=== PATIENT | male | born 1995 | race African-American/Black ===

== ENCOUNTER 2017-10-28 16:48 | Inpatient (IN) | payer MEDICAID ==
[~2017-10-28] VITALS: Ht 170.2 cm; Wt 68.0 kg
[2017-10-28] MEDS ORDERED: ONDANSETRON HCL/PF 4 MG/2 ML VIAL ONE (17:26)
[2017-10-28] MEDS ORDERED: DEXAMETHASONE SOD PHOSPHATE 4 MG/ML VIAL ONE (17:26)
[2017-10-28 17:30] LABS: BASOPHILS # (AUTO) 0.1 /CMM (0.0-0.2); BASOPHILS % (AUTO) 0.8 % (0.0-2.0); EOSINOPHILS # (AUTO) 0.3 /CMM (0.0-0.7); HEMATOCRIT 47 % (39-51); HEMOGLOBIN 16.2 g/dL (13.5-17.5); LYMPHOCYTES # (AUTO) 0.7 /CMM (0.8-4.8); LYMPHOCYTES % (AUTO) 7.6 % (20.0-44.0); MEAN CORPUSCULAR HEMOGLOBIN 28 PG (26.0-33.0); MEAN CORPUSCULAR HGB CONC 35 g/dl (31.0-36.0); MEAN CORPUSCULAR VOLUME 81 fL (80-96); MONOCYTES # (AUTO) 0.5 /CMM (0.1-1.30); MONOCYTES % (AUTO) 4.7 % (2.0-12.0); NEUTROPHILS # (AUTO) 8.1 /CMM (1.8-8.9); NEUTROPHILS % (AUTO) 83.9 % (43.0-81.0); PLATELET COUNT (AUTO) 297 /CMM (150-450); RDW COEFFICIENT OF VARIATION 12.4 (11.5-15.0); RED BLOOD CELL COUNT(AUTO) 5.77 MIL/uL (4.5-6.0); WHITE BLOOD COUNT (AUTO) 9.7 K/uL (4.3-11.0)
[2017-10-28] MEDS ORDERED: ONDANSETRON HCL/PF 4 MG/2 ML VIAL IVP ONE (17:30)
[2017-10-28] MEDS ORDERED: IV NS 0.9% 1,000 ML BAG IV ONE (17:30)
[2017-10-28] MEDS ORDERED: DEXAMETHASONE SOD PHOSPHATE 4 MG/ML VIAL IV ONE (17:30)
[2017-10-28 17:37] LABS: CALCIUM, SERUM 9.3 mg/dL (8.5-10.1); CREATININE 0.9 mg/dL (0.6-1.3); POTASSIUM 3.6 mmol/L (3.5-5.1)
[2017-10-28] MEDS ORDERED: PRED5TAB PO (18:09)
[2017-10-28] MEDS ORDERED: FLUD0.1T3 PO (18:09)
[2017-10-28 20:42] VITALS: BP 107/55
[2017-10-28] MEDS ORDERED: IV D5/ 0.9% NACL 1,000 ML IV PRN (21:00)
[2017-10-28] MEDS ORDERED: ACETAMINOPHEN 325 MG TABLET PO PRN (21:00)
[2017-10-28] MEDS ORDERED: HYDROCODONE/APAP 5/325MG 1 EACH TABLET PO PRN (21:00)
[2017-10-28] MEDS ORDERED: ONDANSETRON HCL/PF 4 MG/2 ML VIAL IV PRN (21:00)
[2017-10-28] MEDS ORDERED: ZOLPIDEM TARTRATE 5 MG TABLET PO PRN (21:00)
[2017-10-28] MEDS: HYDROCORTISONE SOD SUCCINATE 100 MG/2 ML VIAL IV SCH (21:49)
[2017-10-29] VITALS: BP 102/57
[2017-10-29 04:00] VITALS: BP 116/51
[2017-10-29] MEDS: HYDROCORTISONE SOD SUCCINATE 100 MG/2 ML VIAL IV SCH ×2 (04:07→16:51)
[2017-10-29 06:41] LABS: BASOPHILS % (AUTO) 0.1 % (0.0-2.0); HEMATOCRIT 39 % (39-51); HEMOGLOBIN 13.2 g/dL (13.5-17.5); LYMPHOCYTES # (AUTO) 0.6 /CMM (0.8-4.8); LYMPHOCYTES % (AUTO) 11.3 % (20.0-44.0); MEAN CORPUSCULAR HEMOGLOBIN 28 PG (26.0-33.0); MEAN CORPUSCULAR HGB CONC 34 g/dl (31.0-36.0); MEAN CORPUSCULAR VOLUME 82 fL (80-96); MONOCYTES # (AUTO) 0.2 /CMM (0.1-1.30); MONOCYTES % (AUTO) 3.1 % (2.0-12.0); NEUTROPHILS # (AUTO) 4.6 /CMM (1.8-8.9); NEUTROPHILS % (AUTO) 85.5 % (43.0-81.0); PLATELET COUNT (AUTO) 293 /CMM (150-450); RDW COEFFICIENT OF VARIATION 13.1 (11.5-15.0); WHITE BLOOD COUNT (AUTO) 5.4 K/uL (4.3-11.0)
[2017-10-29 06:49] LABS: APPEARANCE,URINE CLEAR (CLEAR); BILIRUBIN,URINE NEGATIVE (NEGATIVE); BLOOD, URINE NEGATIVE Ery/uL (NEGATIVE); COLOR,URINE YELLOW (YELLOW); KETONES,URINE TRACE (NEGATIVE); LEUKOCYTE ESTERASE ,URINE NEGATIVE (NEGATIVE); NITRITE, URINE NEGATIVE (NEGATIVE); PH,URINE 5.5 (5.0-8.0); PROTEIN,URINE NEGATIVE (NEGATIVE); UGLUCOSE NEGATIVE (NEGATIVE); UROBILINOGEN,URINE 0.2 EU/dL (0.2)
[2017-10-29 07:00] LABS: BACTERIA,URINE Rare /HPF (None Seen); RBC,URINE 0-2 /HPF (0-2); SQUAMOUS EPITHELIAL CELL,UR Few /HPF (None Seen); WBC,URINE 0-2 /HPF (0-3)
[2017-10-29 07:01] LABS: MAGNESIUM 1.6 mg/dL (1.8-2.4)
[2017-10-29 08:00] VITALS: BP 116/52
[2017-10-29] MEDS: Magnesium 1GM/D5W 100ML PREMIX 100 ML IV SCH ×2 (08:45→09:45)
[2017-10-29] MEDS: PANTOPRAZOLE 40 MG VIAL IV SCH (08:45)
[2017-10-29 16:00] VITALS: BP 102/47
[2017-10-29 20:00] VITALS: BP 107/53
[2017-10-29] MEDS: IV D5/ 0.9% NACL 1,000 ML IV PRN (20:03)
[2017-10-30] MEDS: HYDROCORTISONE SOD SUCCINATE 100 MG/2 ML VIAL IV SCH (04:03)
[2017-10-30] MEDS: IV D5/ 0.9% NACL 1,000 ML IV PRN ×2 (05:43→21:23)
[2017-10-30 07:34] LABS: CALCIUM, SERUM 7.8 mg/dL (8.5-10.1); CREATININE 0.7 mg/dL (0.6-1.3); MAGNESIUM 1.8 mg/dL (1.8-2.4); POTASSIUM 3.4 mmol/L (3.5-5.1)
[2017-10-30 08:01] VITALS: BP 95/54
[2017-10-30] MEDS ORDERED: POTASSIUM CHLORIDE 20 MEQ TAB.PRT.SR PO SCH (08:30)
[2017-10-30] MEDS ORDERED: HYDROCORTISONE SOD SUCCINATE 100 MG/2 ML VIAL IV SCH (09:00)
[2017-10-30] MEDS: PANTOPRAZOLE 40 MG VIAL IV SCH (09:30)
[2017-10-30 16:00] VITALS: BP 102/63
[2017-10-30] MEDS: FLUDROCORTISONE 0.1 MG TABLET PO SCH (17:20)
[2017-10-30 20:31] VITALS: BP 105/40
[2017-10-31 08:00] VITALS: BP 103/47
[2017-10-31 08:07] LABS: CALCIUM, SERUM 7.7 mg/dL (8.5-10.1); CREATININE 0.6 mg/dL (0.6-1.3); POTASSIUM 3.4 mmol/L (3.5-5.1)
[2017-10-31] MEDS: PANTOPRAZOLE 40 MG VIAL IV SCH (08:21)
[2017-10-31] MEDS: FLUDROCORTISONE 0.1 MG TABLET PO SCH (08:21)
[2017-10-31] MEDS: IV D5/ 0.9% NACL 1,000 ML IV PRN (08:24)
[2017-10-31] MEDS ORDERED: POTASSIUM CHLORIDE 20 MEQ TAB.PRT.SR PO ONE (08:30)
[2017-10-31] MEDS ORDERED: PRED5TAB48 PO (08:43)
[2017-10-31] MEDS ORDERED: FLUD0.1T PO (08:44)
[2017-10-31] MEDS ORDERED: predniSONE 20 MG TABLET PO SCH (09:00)
== END 2017-10-31 10:10 | disposition home or self-care (01) | DRG 424 ==
LOC: ER 16:50 → MEDSG2 20:00 → TELE 21:02 → MED 10-29 08:26
PROVIDERS: ADMIT Internal Medicine; ATTEND Internal Medicine
DX: E27.2 Addisonian crisis (principal)
CPT/HCPCS: 36415; 80048-TC; 81000-TC; 82088; 82533; 83735-TC; 83880; 84244; 85025-TC; 85730-TC; 87081-TC; A4606; C9113; J1100; J1720; J2405; J3475; J7030; J7042; Z7610

== ENCOUNTER 2018-05-07 07:52 | Emergency (ER) | payer MEDICAID ==
[~2018-05-07] VITALS: Ht 170.2 cm; Wt 69.4 kg
[~2018-05-07 07:52] MED LIST: FLUD0.1T PO; PRED5TAB48 PO
--- NOTE | 2018-05-07 07:55 | NUR ---
PT AMBULATORY TO ER BED 09 C/O DIFFUSE ABDOMINAL PAIN W/ NAUSEA AND VOMITING X 3 DAYS. HX OF ADDISONS DISEASE AND UNABLE TO KEEP MEDICINE IN. GOWNED AND PLACED ON MONITOR. AWAITING MD DASILVA.
--- NOTE | 2018-05-07 08:09 | NUR ---
DR RO AT BEDSIDE FOR EVAL.
[2018-05-07] MEDS ORDERED: ONDANSETRON HCL/PF 4 MG/2 ML VIAL ONE (08:27)
[2018-05-07 08:30] LABS: BASOPHILS # (AUTO) 0.1 /CMM (0.0-0.2); BASOPHILS % (AUTO) 1.5 % (0.0-2.0); EOSINOPHILS % (AUTO) 2.5 % (0.0-6.0); HEMATOCRIT 47 % (39-51); HEMOGLOBIN 15.7 g/dL (13.5-17.5); LYMPHOCYTES # (AUTO) 1.5 /CMM (0.8-4.8); LYMPHOCYTES % (AUTO) 18.7 % (20.0-44.0); MEAN CORPUSCULAR HGB CONC 34 g/dl (31.0-36.0); MEAN CORPUSCULAR VOLUME 83 fL (80-96); MONOCYTES # (AUTO) 0.7 /CMM (0.1-1.30); MONOCYTES % (AUTO) 8.2 % (2.0-12.0); NEUTROPHILS # (AUTO) 5.7 /CMM (1.8-8.9); NEUTROPHILS % (AUTO) 69.1 % (43.0-81.0); PLATELET COUNT (AUTO) 331 /CMM (150-450); RED BLOOD CELL COUNT(AUTO) 5.62 MIL/uL (4.5-6.0); WHITE BLOOD COUNT (AUTO) 8.2 K/uL (4.3-11.0)
[2018-05-07] MEDS ORDERED: HYDROCORTISONE SOD SUCCINATE 100 MG/2 ML VIAL IV ONE (08:30)
[2018-05-07] MEDS ORDERED: IV NS 0.9% 1,000 ML BAG IV ONE (08:30)
[2018-05-07] MEDS ORDERED: ONDANSETRON HCL/PF 4 MG/2 ML VIAL IVP ONE (08:30)
[2018-05-07] MEDS ORDERED: HYDROCORTISONE SOD SUCCINATE 100 MG/2 ML VIAL ONE (08:33)
[2018-05-07 08:34] LABS: APPEARANCE,URINE CLEAR (CLEAR); BILIRUBIN,URINE NEGATIVE (NEGATIVE); BLOOD, URINE NEGATIVE Ery/uL (NEGATIVE); COLOR,URINE YELLOW (YELLOW); KETONES,URINE NEGATIVE (NEGATIVE); LEUKOCYTE ESTERASE ,URINE NEGATIVE (NEGATIVE); NITRITE, URINE NEGATIVE (NEGATIVE); PROTEIN,URINE NEGATIVE (NEGATIVE); UGLUCOSE NEGATIVE (NEGATIVE); UROBILINOGEN,URINE 0.2 EU/dL (0.2)
[2018-05-07] MEDS ORDERED: HYDR5TAB2 PO (08:43)
[2018-05-07] MEDS ORDERED: FLUD0.1T PO (08:43)
[2018-05-07 08:49] LABS: ALBUMIN 4.1 g/dL (3.4-5.0); BILIRUBIN,DIRECT 0.1 mg/dL (0.0-0.2); BILIRUBIN,TOTAL 0.9 mg/dL (0.2-1.0); CALCIUM, SERUM 9.1 mg/dL (8.5-10.1); POTASSIUM 4.4 mmol/L (3.5-5.1); TOTAL PROTEIN, SERUM 8.6 g/dL (6.4-8.2)
--- NOTE | 2018-05-07 10:52 | NUR ---
TRANSFER INFO: PATIENT GOING TO ROOM 319-B REPORT TO [phone], RN: HIRO PABON MD: DR. JAVED [facility] ETA 45MIN-1HR
[2018-05-07 11:23] VITALS: BP 115/60
--- NOTE | 2018-05-07 11:50 | NUR ---
REPORT GIVEN TO HIRO AT [facility]. PT TRANSFERED, STABLE CONDITION.
== END 2018-05-07 11:52 | disposition short-term general hospital (02) ==
LOC: ER 07:56
DX: E27.2 Addisonian crisis (principal); F17.200 Nicotine dependence, unspecified, uncomplicated; F12.10 Cannabis abuse, uncomplicated
CPT/HCPCS: 36415; 80048; 80076; 81001; 83690; 85025; 96361; 96374; 96375; 99285; A4606; J1720; J2405; J7030; Z7610; 81000-TC

== ENCOUNTER 2019-07-01 10:06 | Emergency (ER) | payer MEDICAID ==
[~2019-07-01] VITALS: Ht 170.2 cm; Wt 65.8 kg
[~2019-07-01 10:06] MED LIST changes: +HYDR5TAB7 PO; -PRED5TAB48 PO
--- NOTE | 2019-07-01 10:17 | NUR ---
fever and cough x 4 days, last ibuprofen was last night. Patient a/ox4, breathing even and unlabored, no sob noted. Needs attended. kept comfortable.
[2019-07-01] MEDS ORDERED: ACETAMINOPHEN ES 500 MG TABLET ONE (10:29)
[2019-07-01] MEDS ORDERED: IBUPROFEN 600 MG TABLET PO ONE ×2 (10:29→10:30)
[2019-07-01] MEDS ORDERED: ACETAMINOPHEN ES 500 MG TABLET PO ONE (10:30)
--- NOTE | 2019-07-01 10:32 | NUR ---
kerrie may at bedside. influenza swab sent to lab.
--- NOTE | 2019-07-01 11:56 | NUR ---
Patient stated he feels better. No sob noted. Patient discharged to home in stable condition. Written and verbal after care instructions given. Patient verbalizes understanding of instruction.
[2019-07-01 11:57] VITALS: BP 108/68
== END 2019-07-01 11:57 | disposition home or self-care (01) ==
LOC: ER 10:09
DX: J06.9 Acute upper respiratory infection, unspecified (principal); F17.200 Nicotine dependence, unspecified, uncomplicated; Z79.899 Other long term (current) drug therapy
CPT/HCPCS: 71045-TC